=== PATIENT | female | born 1995 | race African-American/Black ===

== ENCOUNTER 2019-07-25 10:10 | Emergency (ER) | payer OTHER ==
[~2019-07-25] VITALS: Ht 152.4 cm; Wt 77.1 kg
[2019-07-25] MEDS ORDERED: IV NORMAL SALINE 1000ML BAG 1,000 ML IV SCH (10:25)
[2019-07-25] MEDS ORDERED: ONDANSETRON PF 4 MG/2 ML VIAL. IV ONE (10:30)
[2019-07-25] MEDS ORDERED: fentaNYL PF VIAL 100 MCG/2 ML VIAL IV ONE (10:30)
--- NOTE | 2019-07-25 10:39 | PHYS DOC ---
Past Medical History Past Medical History: No Pertinent History (YAHIR RIVERA APRN) Past Surgical History: No Surgical History (YAHIR RIVERA APRN) Alcohol Use: None Drug Use: None (YAHIR RIVERA APRN) Adult General Chief Complaint Chief Complaint: ABDOMINAL PAIN HPI HPI Patient is a 23 year old female who presents with RLQ pain that started 2 days ago. Patient states that she thought she was just having cramps. The pain became worse this morning and she states that she feels like she is having contractions. She states she tried taking Tylenol this morning but began vomiti ng. Patient denies UTI symptoms. Patient states that she had a bowel movement yesterday was normal for her and she had a very small round hard bowel movement this morning. Patient denies vaginal discharge or vaginal bleeding. Patient states that she has an Implanon in her arm for control. She is rating her contraction type pain a 10 out of 10. (YAHIR RIVERA APRN) Review of Systems Review of Systems GI: abdominal pain, nausea, vomiting, bloody stools or diarrhea [] : Denies dysuria or hematuria [] Musculoskeletal: Right flank pain. Denies back pain or joint pain [] All other systems were reviewed and found to be within normal limits, except as documented in this note. (YAHIR RIVERA APRN) Current Medications Current Medications Current Medications Medications (Trade) Dose Ordered Sig/[facility] Start Time Stop Time Status Last Admin Dose Admin Fentanyl Citrate (Fentanyl 2ml Vial) 50 mcg 1X ONCE 07/25/19 11:30 07/25/19 11:31 DC 07/25/19 11:21 50 MCG Iohexol (Omnipaque 300 Mg/ml) 75 ml 1X ONCE 07/25/19 11:45 07/25/19 11:49 DC 07/25/19 11:44 75 ML Ketorolac Tromethamine (Toradol 30mg Vial) 30 mg 1X ONCE 07/25/19 12:15 07/25/19 12:16 DC 07/25/19 12:37 30 MG Ondansetron HCl (Zofran) 4 mg 1X ONCE 07/25/19 10:30 07/25/19 10:31 DC 07/25/19 10:41 4 MG Sodium Chloride 1,000 ml @ 1,000 mls/hr Q1H 07/25/19 10:25 07/25/19 11:24 DC 07/25/19 10:41 1,000 MLS/HR Tamsulosin HCl (Flomax) 0.4 mg 1X ONCE 07/25/19 12:15 07/25/19 12:16 DC 07/25/19 12:36 0.4 MG (DONOVAN ANDERSON MD) Allergies Allergies Allergies Coded Allergies Type Severity Reaction Last Updated Verified Penicillins Allergy Severe Anaphylaxis 10/27/13 Yes (DONOVAN ANDERSON MD) Physical Exam Physical Exam Constitutional: Well developed, well nourished, no acute distress, non-toxic appearance. [] Neck: Normal range of motion, no tenderness, supple, no stridor. [] Cardiovascular:Heart rate regular rhythm, no murmur [] Lungs & Thorax: Bilateral breath sounds clear to auscultation [] Abdomen: Bowel sounds normal, soft, right lower quadrant rebound tenderness, no masses, no pulsatile masses. [] Skin: Warm, dry, no erythema, no rash. [] Back: No tenderness, right CVA tenderness. [] Extremities: No tenderness, no cyanosis, no clubbing, ROM intact, no edema. [] Neurologic: Alert and oriented X 3, normal motor function, normal sensory function, no focal deficits noted. [] Psychologic: Affect normal, judgement normal, mood normal. [] (YAHIR RIVERA APRN) Current Patient Data Vital Signs Vital Signs Date Time Temp Pulse Resp B/P (MAP) Pulse Ox O2 Delivery O2 Flow Rate FiO2 07/25/19 12:34 77 19 124/73 (90) 98 Room Air 07/25/19 10:14 98.5 98.5 (DONOVAN ANDERSON MD) Lab Values Laboratory Tests Test 07/25/19 10:25 07/25/19 10:29 White Blood Count 11.4 x10^3/uL (4.0-11.0) H Red Blood Count 4.66 x10^6/uL (3.50-5.40) Hemoglobin 13.6 g/dL (12.0-15.5) Hematocrit 40.9 % (36.0-47.0) Mean Corpuscular Volume 88 fL (79-100) Mean Corpuscular Hemoglobin 29 pg (25-35) Mean Corpuscular Hemoglobin Concent 33 g/dL (31-37) Red Cell Distribution Width 14.2 % (11.5-14.5) Platelet Count 230 x10^3/uL (140-400) Neutrophils (%) (Auto) 71 % (31-73) Lymphocytes (%) (Auto) 24 % (24-48) Monocytes (%) (Auto) 4 % (0-9) Eosinophils (%) (Auto) 0 % (0-3) Basophils (%) (Auto) 0 % (0-3) Neutrophils # (Auto) 8.1 x10^3/uL (1.8-7.7) H Lymphocytes # (Auto) 2.8 x10^3/uL (1.0-4.8) Monocytes # (Auto) 0.5 x10^3/uL (0.0-1.1) Eosinophils # (Auto) 0.0 x10^3/uL (0.0-0.7) Basophils # (Auto) 0.0 x10^3/uL (0.0-0.2) Urine Collection Type Unknown Urine Color Yellow Urine Clarity Clear Urine pH 5.5 Urine Specific [place] 1.025 Urine Protein Negative mg/dL (NEG-TRACE) Urine Glucose (UA) Negative mg/dL (NEG) Urine Ketones (Stick) Negative mg/dL (NEG) Urine Blood Large (NEG) Urine Nitrite Negative (NEG) Urine Bilirubin Negative (NEG) Urine Urobilinogen Dipstick 0.2 mg/dL (0.2 mg/dL) Urine Leukocyte Esterase Negative (NEG) Urine RBC 6-10 /HPF (0-2) Urine WBC 0 /HPF (0-4) Urine Squamous Epithelial Cells Many /LPF Urine Bacteria Few /HPF (0-FEW) Urine Mucus Marked /LPF Sodium Level 145 mmol/L (136-145) Potassium Level 4.0 mmol/L (3.5-5.1) Chloride Level 109 mmol/L (98-107) H Carbon Dioxide Level 23 mmol/L (21-32) Anion Gap 13 (6-14) Blood Urea Nitrogen 10 mg/dL (7-20) Creatinine 1.0 mg/dL (0.6-1.0) Estimated GFR (Cockcroft-Gault) 81.7 BUN/Creatinine Ratio 10 (6-20) Glucose Level 121 mg/dL (70-99) H Calcium Level 8.9 mg/dL (8.5-10.1) Total Bilirubin 0.2 mg/dL (0.2-1.0) Aspartate Amino Transferase (AST) 11 U/L (15-37) L Alanine Aminotransferase (ALT) 12 U/L (14-59) L Alkaline Phosphatase 68 U/L (46-116) Total Protein 7.9 g/dL (6.4-8.2) Albumin 4.1 g/dL (3.4-5.0) Albumin/Globulin Ratio 1.1 (1.0-1.7) Lipase 93 U/L (73-393) Urine Opiates Screen Neg (NEG) Urine Methadone Screen Neg (NEG) Urine Barbiturates Neg (NEG) Urine Phencyclidine Screen Neg (NEG) Urine Amphetamine/Methamphetamine Neg (NEG) Urine Benzodiazepines Screen Neg (NEG) Urine Cocaine Screen Neg (NEG) Urine Cannabinoids Screen Pos (NEG) Urine Ethyl Alcohol Neg (NEG) POC Urine HCG, Qualitative Hcg negative (Negative) Laboratory Tests 07/25/19 10:25 Laboratory Tests 07/25/19 10:25 (DONOVAN ANDERSON MD) Lab Values Laboratory Tests Test 07/25/19 10:25 07/25/19 10:29 White Blood Count 11.4 x10^3/uL (4.0-11.0) H Red Blood Count 4.66 x10^6/uL (3.50-5.40) Hemoglobin 13.6 g/dL (12.0-15.5) Hematocrit 40.9 % (36.0-47.0) Mean Corpuscular Volume 88 fL (79-100) Mean Corpuscular Hemoglobin 29 pg (25-35) Mean Corpuscular Hemoglobin Concent 33 g/dL (31-37) Red Cell Distribution Width 14.2 % (11.5-14.5) Platelet Count 230 x10^3/uL (140-400) Neutrophils (%) (Auto) 71 % (31-73) Lymphocytes (%) (Auto) 24 % (24-48) Monocytes (%) (Auto) 4 % (0-9) Eosinophils (%) (Auto) 0 % (0-3) Basophils (%) (Auto) 0 % (0-3) Neutrophils # (Auto) 8.1 x10^3/uL (1.8-7.7) H Lymphocytes # (Auto) 2.8 x10^3/uL (1.0-4.8) Monocytes # (Auto) 0.5 x10^3/uL (0.0-1.1) Eosinophils # (Auto) 0.0 x10^3/uL (0.0-0.7) Basophils # (Auto) 0.0 x10^3/uL (0.0-0.2) Urine Collection Type Unknown Urine Color Yellow Urine Clarity Clear Urine pH 5.5 Urine Specific [place] 1.025 Urine Protein Negative mg/dL (NEG-TRACE) Urine Glucose (UA) Negative mg/dL (NEG) Urine Ketones (Stick) Negative mg/dL (NEG) Urine Blood Large (NEG) Urine Nitrite Negative (NEG) Urine Bilirubin Negative (NEG) Urine Urobilinogen Dipstick 0.2 mg/dL (0.2 mg/dL) Urine Leukocyte Esterase Negative (NEG) Urine RBC 6-10 /HPF (0-2) Urine WBC 0 /HPF (0-4) Urine Squamous Epithelial Cells Many /LPF Urine Bacteria Few /HPF (0-FEW) Urine Mucus Marked /LPF Sodium Level 145 mmol/L (136-145) Potassium Level 4.0 mmol/L (3.5-5.1) Chloride Level 109 mmol/L (98-107) H Carbon Dioxide Level 23 mmol/L (21-32) Anion Gap 13 (6-14) Blood Urea Nitrogen 10 mg/dL (7-20) Creatinine 1.0 mg/dL (0.6-1.0) Estimated GFR (Cockcroft-Gault) 81.7 BUN/Creatinine Ratio 10 (6-20) Glucose Level 121 mg/dL (70-99) H Calcium Level 8.9 mg/dL (8.5-10.1) Total Bilirubin 0.2 mg/dL (0.2-1.0) Aspartate Amino Transferase (AST) 11 U/L (15-37) L Alanine Aminotransferase (ALT) 12 U/L (14-59) L Alkaline Phosphatase 68 U/L (46-116) Total Protein 7.9 g/dL (6.4-8.2) Albumin 4.1 g/dL (3.4-5.0) Albumin/Globulin Ratio 1.1 (1.0-1.7) Lipase 93 U/L (73-393) Urine Opiates Screen Neg (NEG) Urine Methadone Screen Neg (NEG) Urine Barbiturates Neg (NEG) Urine Phencyclidine Screen Neg (NEG) Urine Amphetamine/Methamphetamine Neg (NEG) Urine Benzodiazepines Screen Neg (NEG) Urine Cocaine Screen Neg (NEG) Urine Cannabinoids Screen Pos (NEG) Urine Ethyl Alcohol Neg (NEG) POC Urine HCG, Qualitative Hcg negative (Negative) Laboratory Tests 07/25/19 10:25 Laboratory Tests 07/25/19 10:25 (YAHIR RIVERA APRN) EKG EKG [] (YAHIR RIVERA APRN) Radiology/Procedures Radiology/Procedures [] (YAHIR RIVERA APRN) Impressions: [facility] [address] [place], [place] [id number] IMAGING REPORT Signed PATIENT: VERNELL LOPEZ ACCOUNT: [id number] : 1995 LOCATION: ER AGE: 23 SEX: F EXAM STATUS: REG ER ORD. PHYSICIAN: YAHIR RIVERA APRN REASON: RLQ pain N/V X 2 DAYS INJ 75ML OMNI 300 PROCEDURE: CT ABD PELV W/ IV CONTRST ONLY CT ABD PELV W/ IV CONTRST ONLY History: Right lower quadrant pain. Technique: After the administration of intravenous contrast, CT imaging was performed of the abdomen and pelvis. Multiplanar images are reviewed. Contrast: 75 mL Omnipaque 300 IV contrast. Exposure: One or more of the following individualized dose reduction techniques were utilized for this examination: 1. Automated exposure control 2. Adjustment of the mA and/or kV according to patient size 3. Use of iterative reconstruction technique. Comparison: None Findings: Lower chest: No consolidation or pleural effusion. Abdomen and pelvis: 3 mm right ureterovesical junction calculus. Mild right hydronephrosis and hydroureter. Mild perinephric and periureteral fat stranding. Bilateral renal hypodensities, likely cysts. No left hydronephrosis. The liver, spleen, adrenal glands, pancreas and gallbladder are unremarkable. No biliary ductal dilatation. Patent portal veins. Normal appendix. No evidence of bowel obstruction. Mildly prominent mesenteric lymph nodes, likely reactive. No ascites. Pelvic contents are unremarkable. Decompressed urinary bladder. Bones: No pathologic osseous lesions. Impression: 1. 3 mm right ureterovesical junction stone with mild hydronephrosis/hydroureter including mild perinephric/periureteral fat stranding. 2. Bilateral renal hypodensities, likely cysts. Electronically signed by: Enrico Johnson DO (07/25/2019 11:58 AM) [id number] DICTATED and SIGNED BY: ENRICO JOHNSON DO DATE: 07/25/19 5123 (YAHIR RIVERA APRN) Course & Med Decision Making Course & Med Decision Making Patient is dry heaving in the emergency room. Patient has right lower quadrant pain with rebound tenderness. Patient has epigastric tenderness to palpation. Abdomen is otherwise soft. Afebrile. Vital signs within normal limits. test and emergency room is negative. Patient has right CVA tenderness. Skin pink warm and dry. Speaks in full clear sentences. Patient states the pain is worse when she is up and moving. Lungs are clear to auscultation in all lobes. Alert and oriented. Ambulatory with a steady gait the patient states she is unable to stand up straight due to pain. PERRLA. CT ABD PELV shows 1. 3 mm right ureterovesical junction stone with mild hydronephrosis/hydroureter including mild perinephric/periureteral fat stranding. 2. Bilateral renal hypodensities, likely cysts. [] (YAHIR RIVERA APRN) Dragon Disclaimer Dragon Disclaimer This electronic medical record was generated, in whole or in part, using a voice recognition dictation system. (YAHIR RIVERA APRN) Departure Departure Impression: Primary Impression: Renal calculus, right Disposition: 01 HOME, SELF-CARE Condition: STABLE Referrals: CHRIS HORNER MD (PCP) Patient Instructions: Kidney Stones Additional Instructions: Follow up with Urology as soon as possible at [phone]. Take medications as prescribed. Drink plenty of fluids. Scripts Ondansetron (ONDANSETRON ODT) 4 Mg Tab.rapdis 1 TAB PO PRN Q6-8HRS, #20 TAB Prov: YAHIR RIVERA APRN 07/25/19 Tamsulosin Hcl (FLOMAX) 0.4 Mg Cap.er.24h 1 CAP PO DAILY, #30 CAP 11 Refills Prov: YAHIR RIVERA APRN 07/25/19 Ibuprofen (IBUPROFEN) 600 Mg Tablet 600 MG PO PRN Q6HRS PRN for INFLAMMATION, #20 TAB Prov: YAHIR RIVERA APRN 07/25/19 Oxycodone/Apap 5-325 (PERCOCET 5-325 MG TABLET ) 1 Each Tablet 1 TAB PO PRN Q6HRS PRN for PAIN, #15 TAB 0 Refills Prov: YAHIR RIVERA APRN 07/25/19 Cephalexin (KEFLEX) 500 Mg Capsule 1 CAP PO BID for 7 Days, #14 CAP 0 Refills Prov: YAHIR RIVERA APRN 07/25/19 Attending Signature I have participated in the care of this patient and I have reviewed and agree with all pertinent clinical information above including history, exam, and recommendations. (DONOVAN ANDERSON MD) YAHIR RIVERA APRN Jul 25, 2019 10:39 DONOVAN ANDERSON MD Jul 30, 2019 18:10
[2019-07-25 10:51] LABS: BASO % 0 % (0-3); EOS % 0 % (0-3); HEMATOCRIT 40.9 % (36.0-47.0); HEMOGLOBIN 13.6 g/dL (12.0-15.5); LYMPH # 2.8 x10^3/uL (1.0-4.8); LYMPH % 24 % (24-48); MEAN CORPUSCULAR HEMOGLOBIN 29 pg (25-35); MEAN CORPUSCULAR HGB CONC 33 g/dL (31-37); MEAN CORPUSCULAR VOLUME 88 fL (79-100); MONO # 0.5 x10^3/uL (0.0-1.1); MONO % 4 % (0-9); NEUT # 8.1 x10^3/uL (1.8-7.7); NEUT % 71 % (31-73); PLATELET COUNT 230 x10^3/uL (140-400); RED BLOOD COUNT 4.66 x10^6/uL (3.50-5.40); RED CELL DISTRIBUTION WIDTH 14.2 % (11.5-14.5); WHITE BLOOD COUNT 11.4 x10^3/uL (4.0-11.0)
[2019-07-25 10:57] LABS: BILIRUBIN,URINE NEGATIVE (NEG); CLARITY,URINE CLEAR; COLOR,URINE YELLOW; NITRITE,URINE NEGATIVE (NEG); PH,URINE 5.5; PROTEIN,URINE NEGATIVE (NEG-TRACE); UROBILINOGEN,URINE 0.2 mg/dL (0.2 mg/dL)
[2019-07-25 11:03] LABS: BARBITURATES NEG (NEG); BENZODIAZEPINES NEG (NEG); CANNABINOIDS POS (NEG); COCAINE NEG (NEG); METHADONE NEG (NEG); OPIATES NEG (NEG); PHENCYCLIDINE NEG (NEG)
[2019-07-25 11:06] LABS: AMPHETAMINE/METHAMPHETAMINE NEG (NEG); CALCIUM 8.9 mg/dL (8.5-10.1); GFR 81.7
[2019-07-25 11:12] LABS: ALBUMIN 4.1 g/dL (3.4-5.0); ALBUMIN/GLOBULIN RATIO 1.1 (1.0-1.7); TOTAL BILIRUBIN 0.2 mg/dL (0.2-1.0); TOTAL PROTEIN 7.9 g/dL (6.4-8.2)
[2019-07-25 11:21] LABS: BACTERIA,URINE FEW /HPF (0-FEW); SQUAMOUS EPITHELIAL CELL,UR MANY /LPF; WBC,URINE 0 /HPF (0-4)
[2019-07-25] MEDS ORDERED: fentaNYL PF VIAL 100 MCG/2 ML VIAL IVP ONE (11:30)
[2019-07-25] MEDS ORDERED: IOHEXOL 300 MG/ML 100ML VIAL. IV ONE (11:45)
--- NOTE | 2019-07-25 12:01 | RAD ---
CT ABD PELV W/ IV CONTRST ONLY History: Right lower quadrant pain. Technique: After the administration of intravenous contrast, CT imaging was performed of the abdomen and pelvis. Multiplanar images are reviewed. Contrast: 75 mL Omnipaque 300 IV contrast. Exposure: One or more of the following individualized dose reduction techniques were utilized for this examination: 1. Automated exposure control 2. Adjustment of the mA and/or kV according to patient size 3. Use of iterative reconstruction technique. Comparison: None Findings: Lower chest: No consolidation or pleural effusion. Abdomen and pelvis: 3 mm right ureterovesical junction calculus. Mild right hydronephrosis and hydroureter. Mild perinephric and periureteral fat stranding. Bilateral renal hypodensities, likely cysts. No left hydronephrosis. The liver, spleen, adrenal glands, pancreas and gallbladder are unremarkable. No biliary ductal dilatation. Patent portal veins. Normal appendix. No evidence of bowel obstruction. Mildly prominent mesenteric lymph nodes, likely reactive. No ascites. Pelvic contents are unremarkable. Decompressed urinary bladder. Bones: No pathologic osseous lesions. Impression: 1. 3 mm right ureterovesical junction stone with mild hydronephrosis/hydroureter including mild perinephric/periureteral fat stranding. 2. Bilateral renal hypodensities, likely cysts. Electronically signed by: Enrico Johnson DO (07/25/2019 11:58 AM) [id number]
[2019-07-25] MEDS ORDERED: TAMS0.4C97 PO (12:09)
[2019-07-25] MEDS ORDERED: IBUP-1007 PO (12:09)
[2019-07-25] MEDS ORDERED: CEPH-264 PO (12:09)
[2019-07-25] MEDS ORDERED: OXYC1TAB15 PO (12:09)
[2019-07-25] MEDS ORDERED: ONDA4TAB12 PO (12:13)
[2019-07-25] MEDS ORDERED: TAMSULOSIN 0.4 MG CAP.ER.24H. PO ONE (12:15)
[2019-07-25] MEDS ORDERED: KETOROLAC 30 MG/ML VIAL. IVP ONE (12:15)
[2019-07-25 12:34] VITALS: BP 124/73
== END 2019-07-25 12:49 | disposition home or self-care (01) ==
LOC: ER 10:10
DX: N13.2 Hydronephrosis with renal and ureteral calculous obstruction (principal); Z88.0 Allergy status to penicillin
CPT/HCPCS: 36415; 74177; 80053; 80307; 81001; 81025; 83690; 85025; 96361; 96374; 96375; 96376; 99285; J1885; J2405; J3010; J7030; Q9967